=== PATIENT | male | born 1990 | race American Indian/Alaskan Native ===

== ENCOUNTER 2017-09-11 16:49 | Emergency (ER) | payer SELFPAY ==
[2017-09-11 16:59] VITALS: BP 133/81
--- NOTE | 2017-09-11 18:09 | Emergency Department Report ---
ED Male HPI - General Chief complaint: Pain General Stated complaint: HERNIA Time Seen by Provider: 09/11/17 18:07 Source: patient, family Mode of arrival: Ambulatory Limitations: No Limitations - History of Present Illness MD Complaint: testicle pain, testicle swelling Onset/Timin -: days(s) Location: left testicle Radiation: none Severity: severe Severity scale (0 -10): 8 Quality: aching Consistency: intermittent Improves with: rest Worsens with: palpation new sexual partner swelling. denies: discharge, mass, rash, urinary retention, blood in urine, dysuria, fever, nausea/vomiting, incontinence - Related Data Sexually active: Yes Allergies Allergy/AdvReac Type Severity Reaction Status Date / Time No Known Allergies Allergy Unverified 09/11/17 16:52 ED Review of Systems ROS: Stated complaint: HERNIA Other details as noted in HPI Comment: All other systems reviewed and negative Constitutional: no symptoms reported Eyes: denies: vision change ENT: denies: ear pain, throat pain, congestion Respiratory: no symptoms reported Cardiovascular: denies: chest pain, palpitations, dyspnea on exertion, orthopnea , edema, syncope, paroxysmal nocturnal dyspnea Gastrointestinal: denies: abdominal pain, nausea, vomiting, diarrhea, constipation Genitourinary: testicular pain, other (left testicular swelling). denies: urgency, dysuria, frequency, hematuria, discharge, testicular mass Musculoskeletal: denies: back pain, arthralgia, myalgia Skin: denies: rash Neurological: denies: headache, weakness, numbness, paresthesias, confusion, abnormal gait, vertigo ED Past Medical Hx - Past Medical History Previous Medical History?: No - Surgical History Past Surgical History?: No - Family History Family history: no significant - Social History Smoking Status: Never Smoker Substance Use Type: Marijuana ED Physical Exam - General Limitations: No Limitations General appearance: alert, in no apparent distress - Head Head exam: Present: atraumatic, normocephalic, normal inspection - Eye Eye exam: Present: normal appearance, PERRL, EOMI. Absent: nystagmus, periorbital swelling, periorbital tenderness Pupils: Present: normal accommodation - ENT ENT exam: Present: normal exam, normal orophraynx, mucous membranes moist - Neck Neck exam: Present: normal inspection, full ROM. Absent: tenderness, meningismus, lymphadenopathy, thyromegaly - Respiratory Respiratory exam: Present: normal lung sounds bilaterally. Absent: respiratory distress, wheezes, chest wall tenderness, accessory muscle use - Cardiovascular Cardiovascular Exam: Present: regular rate, normal rhythm, normal heart sounds. Absent: systolic murmur, diastolic murmur - GI/Abdominal GI/Abdominal exam: Present: soft, normal bowel sounds. Absent: distended, tenderness, guarding, rebound, rigid, organomegaly, mass, bruit, pulsatile mass , hernia - Extremities Exam Extremities exam: Present: normal inspection, full ROM, normal capillary refill , other (no clubbing cyanosis or edema. +2 pulses to extremities. No neurovascular compromise). Absent: tenderness, pedal edema, joint swelling, calf tenderness - Back Exam Back exam: Present: normal inspection, full ROM. Absent: tenderness, CVA tenderness (R), CVA tenderness (L), muscle spasm, paraspinal tenderness, vertebral tenderness, rash noted - Neurological Exam Neurological exam: Present: alert, oriented X3, normal gait - Psychiatric Psychiatric exam: Present: normal affect, normal mood - Skin Skin exam: Present: warm, dry, intact, normal color. Absent: rash ED Course Vital Signs 09/11/17 16:52 Temperature 98.4 F Pulse Rate 84 Blood Pressure 133/81 O2 Sat by Pulse 100 Oximetry - Reevaluation(s) Reevaluation #1: 09/11/17 18:58 Patient given [place] 5/325 mg 1 tablet in the emergency room. Awaiting ultrasound and urinalysis results ED Medical Decision Making - Lab Data Lab Results 09/11/17 Range/Units 18:30 Urine Color Yellow (Yellow) Urine Turbidity Clear (Clear) Urine pH 6.0 (5.0-7.0) Ur Specific [place] 1.028 (1.003-1.030) Urine Protein <15 mg/dl (Negative) mg/dL Urine Glucose (UA) Neg (Negative) mg/dL Urine Ketones Neg (Negative) mg/dL Urine Blood Neg (Negative) Urine Nitrite Neg (Negative) Urine Bilirubin Neg (Negative) Urine Urobilinogen 2.0 (<2.0) mg/dL Ur Leukocyte Esterase Neg (Negative) Urine WBC (Auto) 2.0 (0.0-6.0) /HPF Urine RBC (Auto) 2.0 (0.0-6.0) /HPF Urine Mucus 1+ /HPF Urine for gonorrhea and Chlamydia sent - Radiology Data Radiology results: report reviewed Just found of scrotum reveals patient with enlarged and hyperemic left epididymis consistent with epididymitis. Small left hydrocele. Blood flow is normal. No focal masses identified. - Medical Decision Making ED course: Patient here complaining that he had sexual activity a couple days ago and he has left scrotal pain with swelling. He denies any penile discharge. Patient scrotal ultrasound reveals enlarged and hyperemic left epididymis consistent with acute epididymitis. he has small left hydrocele. Patient urinalysis was normal. Urine for gonorrhea and chlamydia collected and sent. I discussed the patient has urine results and also ultrasound results and I discussed with him that is recommended that he be treated for gonorrhea and chlamydia as epididymitis in Young male is usually caused by gonorrhea and chlamydia infection. Patient agrees to be treated. He was given Rocephin 250 mg IM and azithromycin 1 g by mouth without any adverse reaction. I discussed with him that he needs to practice safe sex and let his partnerthat he was treated in the emergency room for gonorrhea and chlamydia and here she will need to be tested. I also discussed him that he needs to follow up with health department in 7-10 days for repeat testing. Patient discharged home from emergency room in stable condition Critical care attestation.: If time is entered above; I have spent that time in minutes in the direct care of this critically ill patient, excluding procedure time. ED Disposition Clinical Impression: Epididymitis, Left hydrocele, Acute pain in scrotum Disposition: [id number] TO HOME OR SELFCARE Is pt being admited?: No Does the pt Need Aspirin: No Condition: Stable Instructions: Epididymitis (ED), Safe Sex (ED), Sexually Transmitted Diseases ( ED), Hydrocele (ED), Testicle Pain (ED) Additional Instructions: Please practice safe sex Follow-up with [facility] in 7-10 days for recheck Your U/S shows you have epididymitis and he recommended by CDC that the most common cause of this in male in your age group is from gonorrhea and/or Chlamydia. Although your not having any penile discharges recommended that year treated with antibiotic. You were treated for gonorrhea and chlamydia in emergency room. Please do not have any sexual activity for the next 2 weeks. Please advise her sex partner that he was treated for gonorrhea and chlamydia and they will need to get tested. Referrals: [facility] [Outside[facility] - 7-10 days Forms: STI Treatment and Prevention, Work/School Release Form(ED)
[2017-09-11] MEDS ORDERED: NORCO 5/325 PO ONE ×2 (18:48→20:12)
[2017-09-11 18:59] LABS: Bilirubin,Urine NEG (Negative); Blood,Urine NEG (Negative); Ketones,Urine NEG (Negative); Leukocyte Esterase,Urine NEG (Negative); Mucus,Urine 1+ /HPF; Nitrite,Urine NEG (Negative); Protein,Urine <15 mg/dL mg/dL (Negative)
--- NOTE | 2017-09-11 19:27 | Ultrasound Report ---
FINAL REPORT PROCEDURE: Scrotal ultrasound. TECHNIQUE: Real-time kaye-scale and color flow Doppler sonography in multiple planes of the scrotum, testicles, and epididymes was performed. Velocity spectral waveform analysis Doppler imaging of the arterial inflow and venous outflow of the testicles was performed with image documentation. CPT 22676 and 61092 HISTORY: Left testicular pain. COMPARISON: No prior studies are available for comparison. FINDINGS: Both testes have uniform echogenicity. There are no focal masses identified. There is normal testicular blood flow demonstrated bilaterally with Doppler spectral analysis. The right epididymal head appears normal in size. The left epididymis appears diffusely enlarged. There is prominent color flow signal present in the left epididymis. This suggests acute epididymitis. There is a small left hydrocele. IMPRESSION: Enlarged and hyperemic left epididymis consistent with acute epididymitis. Small left hydrocele.
[2017-09-11] MEDS ORDERED: ROCEPHIN IM ONE (19:44)
[2017-09-11] MEDS ORDERED: XYLOCAINE 1% MPF 5 mL INFILTRATI ONE (19:44)
[2017-09-11] MEDS ORDERED: ZITHROMAX PO ONE (19:44)
== END 2017-09-11 20:20 | disposition home or self-care (01) ==
LOC: ED 16:49
DX: N45.1 Epididymitis (principal); N43.3 Hydrocele, unspecified; F12.10 Cannabis abuse, uncomplicated
CPT/HCPCS: 81001; 93975; 96372; 99284; J0696